=== PATIENT | female | born 1965 | race Caucasian/White ===

== ENCOUNTER 2017-01-12 20:02 | Inpatient (IN) | payer OTHER ==
[2017-01-11] VITALS: BP 105/59; PULSE 90; RESP 20; TEMP 98.5; O2SAT 99
[~2017-01-12] VITALS: Ht 167.6 cm; Wt 59.4 kg
[2017-01-12] VITALS (8 sets, daily range): BP systolic 115–156; BP diastolic 59–92; PULSE 96–120; RESP 10–16; TEMP 94.7; O2SAT 87–100
[2017-01-12] MEDS ORDERED: PROPOFOL 1000 MG/100 ML INJ 100 ML ONE (20:25)
[2017-01-12] MEDS ORDERED: ETOMIDATE 20 MG/10 ML VIAL IV PUSH ONE (20:45)
[2017-01-12] MEDS ORDERED: PROPOFOL 1000 MG/100 ML INJ 100 ML IV PRN (20:45)
[2017-01-12] MEDS ORDERED: SODIUM CHLOR 0.9% 1000 ML INJ 1,000 ML IV ONE ×2 (20:45)
[2017-01-12] MEDS ORDERED: SUCCINYLCHOLINE CHLORIDE 100 MG/5 ML SYRINGE IV PUSH ONE (20:45)
[2017-01-12 20:58] LABS: AUTOMATED NEUTROPHIL # 2.9 TH/MM3 (1.8-7.7); BASOPHIL # 0.1 TH/MM3 (0-0.2); BASOPHIL % 1.4 % (0.0-2.0); EOSINOPHIL # 0.1 TH/MM3 (0-0.4); EOSINOPHIL % 1.4 % (0.0-4.0); HEMATOCRIT 36.1 % (35.0-46.0); HEMO FLAGS DIFF FINAL; LYMPH % 43.5 % (9.0-44.0); LYMPHOCYTE # 2.7 TH/MM3 (1.0-4.8); MEAN CORPUSCULAR HEMOGLOBIN 33.2 PG (27.0-34.0); MEAN CORPUSCULAR HGB CONC 33.9 % (32.0-36.0); MONO % 7.3 % (0.0-8.0); NEUT % 46.4 % (16.0-70.0); PLATELET COUNT 336 TH/MM3 (150-450); RED BLOOD COUNT 3.69 MIL/MM3 (4.00-5.30); WHITE BLOOD COUNT 6.2 TH/MM3 (4.0-11.0)
--- NOTE | 2017-01-12 21:09 | PD ---
HPI . Altered mental status Chief Complaint: OD/ Ingestion Time Seen by Provider: 20:28 Travel History International Travel<30 days: No Contact w/Intl Traveler<30days: No Traveled to known affect area: No History of Present Illness HPI This patient presents to us via [facility] for altered mental status. She was found unresponsive by the swimming pool. There is no concern for drowning. Apparently, she and her friends were having a libertarian by the pool. She passed out. EMS was called. The bystanders showed the medics numerous pills that the patient probably ingested. She has also been drinking. [facility] treated her with 2 doses of Narcan with some improvement in her mental status. I believe that they said that her GCS went from 3-11 with Narcan. No further history is obtainable at this time. This patient has never been seen here before. [facility] Social History Tobacco Use: Yes Allergies-Medications (Allergen,Severity, Reaction): Coded Allergies: No Known Allergies (Unverified , 01/12/17) Reported Meds & Prescriptions Reported Meds & Active Scripts Active Active Prescriptions or Reported Medications Unobtainable Review of Systems ROS Limitations: Intubated, Unresponsive Physical Exam Narrative GENERAL: Thin, disheveled-appearing woman who is unresponsive. She did not respond to attempts at insertion of a nasal airway and she had a negative gag reflex. SKIN: warm/dry. She has some scattered bruises in various stages of healing. HEAD: Normocephalic. Atraumatic. EYES: Pupils equal and round. No scleral icterus. No injection or drainage. ENT: Nose bleed developed following insertion of the nasal airway. Very poor dentition. NECK: Trachea midline. Full range of motion. CARDIOVASCULAR: Sinus tachycardia. RESPIRATORY: Decreased respiratory effort. GASTROINTESTINAL: Abdomen soft. Nontender. Bowel sounds present. Nondistended. MUSCULOSKELETAL: No obvious deformities. NEUROLOGICAL: Obtunded. Does not respond to painful stimuli. She does have spontaneous movement of all 4 extremities. PSYCHIATRIC: Unable to assess. Data Data Last Documented VS Vital Signs Date Time Temp Pulse Resp B/P (MAP) Pulse Ox O2 Delivery O2 Flow Rate FiO2 01/12/17 22:38 100 16 156/92 (113) 100 01/12/17 21:30 94.7 01/12/17 20:53 35.00 50 01/12/17 20:15 Nasal Cannula Orders Orders Propofol 1000 Mg/100 Ml Inj (Diprivan 10 (01/12/17 20:25) Electrocardiogram (01/12/17 20:28) Complete Blood Count With Diff (01/12/17 20:28) Comprehensive Metabolic Panel (01/12/17 20:28) Prothrombin Time / Inr (Pt) (01/12/17 20:28) Act Partial Throm Time (Ptt) (01/12/17 20:28) Urinalysis - C+S If Indicated (01/12/17 20:28) Chest, Single Ap (01/12/17 20:28) Ct Brain W/O Iv Contrast(Rout) (01/12/17 20:28) Arterial Blood Gas (Abg) (01/12/17 20:28) Iv Access Insert/Monitor (01/12/17 20:28) Ecg Monitoring (01/12/17 20:28) Oximetry (01/12/17 20:28) Pascual-Gastric Tube Insert/Mon (01/12/17 20:28) Oxygen Administration (01/12/17 20:28) Urinary Catheter Insert/Apply (01/12/17 20:28) Drug Screen, Random Urine (01/12/17 20:28) Alcohol (Ethanol) (01/12/17 20:28) Salicylates (Aspirin) (01/12/17 20:28) Tylenol (Acetaminophen) (01/12/17 20:28) Lactic Acid Sepsis Protocol (01/12/17 20:28) Ed Urine Pregnancytest Poc (01/12/17 20:28) ^ Infusion (01/12/17 20:28) Neurological Rass Scale Q30MX2,Q2HX4,Q4H (01/12/17 20:28) Etomidate Inj (Amidate Inj) (01/12/17 20:45) Succinylcholine Inj (Quelicin Inj) (01/12/17 20:45) Propofol 1000 Mg/100 Ml Inj (Diprivan 10 (01/12/17 20:45) ^ Infusion (01/12/17 20:35) Neurological Rass Scale Q30MX2,Q2HX4,Q4H (01/12/17 20:35) Sodium Chlor 0.9% 1000 Ml Inj (Ns 1000 M (01/12/17 20:45) Sodium Chlor 0.9% 1000 Ml Inj (Ns 1000 M (01/12/17 20:45) Labs Laboratory Tests Test 01/12/17 20:30 01/12/17 21:18 White Blood Count 6.2 TH/MM3 Red Blood Count 3.69 MIL/MM3 Hemoglobin 12.2 GM/DL Hematocrit 36.1 % Mean Corpuscular Volume 98.0 FL Mean Corpuscular Hemoglobin 33.2 PG Mean Corpuscular Hemoglobin Concent 33.9 % Red Cell Distribution Width 13.0 % Platelet Count 336 TH/MM3 Mean Platelet Volume 7.7 FL Neutrophils (%) (Auto) 46.4 % Lymphocytes (%) (Auto) 43.5 % Monocytes (%) (Auto) 7.3 % Eosinophils (%) (Auto) 1.4 % Basophils (%) (Auto) 1.4 % Neutrophils # (Auto) 2.9 TH/MM3 Lymphocytes # (Auto) 2.7 TH/MM3 Monocytes # (Auto) 0.4 TH/MM3 Eosinophils # (Auto) 0.1 TH/MM3 Basophils # (Auto) 0.1 TH/MM3 CBC Comment DIFF FINAL Differential Comment Prothrombin Time 11.2 SEC Prothromb Time International Ratio 1.0 RATIO Activated Partial Thromboplast Time 27.3 SEC Urine Color LIGHT-YELLOW Urine Turbidity CLEAR Urine pH 5.5 Urine Specific [place] 1.010 Urine Protein NEG mg/dL Urine Glucose (UA) NEG mg/dL Urine Ketones NEG mg/dL Urine Occult Blood NEG Urine Nitrite POS Urine Bilirubin NEG Urine Urobilinogen LESS THAN 2.0 MG/DL Urine Leukocyte Esterase TRACE Urine RBC LESS THAN 1 /hpf Urine WBC 3 /hpf Urine Squamous Epithelial Cells <1 /hpf Urine Bacteria OCC /hpf Urine Mucus FEW /lpf Microscopic Urinalysis Comment CULT NOT INDICATED Blood Urea Nitrogen 10 MG/DL Creatinine 0.74 MG/DL Random Glucose 118 MG/DL Total Protein 6.8 GM/DL Albumin 3.5 GM/DL Calcium Level 7.9 MG/DL Alkaline Phosphatase 100 U/L Aspartate Amino Transf (AST/SGOT) 28 U/L Alanine Aminotransferase (ALT/SGPT) 22 U/L Total Bilirubin 0.5 MG/DL Sodium Level 139 MEQ/L Potassium Level 3.5 MEQ/L Chloride Level 106 MEQ/L Carbon Dioxide Level 23.3 MEQ/L Anion Gap 10 MEQ/L Estimat Glomerular Filtration Rate 82 ML/MIN Lactic Acid Level 3.4 mmol/L Salicylates Level 6.1 MG/DL Urine Opiates Screen NEG Acetaminophen Level LESS THAN 2.0 MCG/ML Urine Barbiturates Screen NEG Urine Amphetamines Screen NEG Urine Benzodiazepines Screen POS Urine Cocaine Screen NEG Urine Cannabinoids Screen POS Ethyl Alcohol Level 268 MG/DL Blood Gas Puncture Site RT RADIAL Blood Gas Patient Temperature 98.6 Blood Gas HCO3 19 mmol/L Blood Gas Base Excess -5.3 mmol/L Blood Gas Oxygen Saturation 91 % Arterial Blood pH 7.34 Arterial Blood Partial Pressure CO2 37 mmHg Arterial Blood Partial Pressure O2 100 mmHG Arterial Blood Oxygen Content 13.6 Vol % Arterial Blood Carboxyhemoglobin 5.3 % Arterial Blood Methemoglobin 0.8 % Blood Gas Hemoglobin 10.5 G/DL Oxygen Delivery Device VENTILATOR Blood Gas Ventilator Setting AC/16 /500/PEEP5 Blood Gas Inspired Oxygen 50 % [facility] Medical Decision Making Medical Screen Exam Complete: Yes Emergency Medical Condition: Yes Medical Record Reviewed: Yes (no old records) Interpretation(s) EKG shows a sinus tachycardia at 105. No acute ischemic changes. Differential Diagnosis Differential diagnosis of altered mental status includes but is not limited to infection, electrolyte abnormality, neurological event, intoxication Narrative Course Patient presented to us via [facility] with altered mental status. She had been given 2 doses of IV Narcan for a total of 2 mg prior to presentation. EMS reported an improvement of her GCS with the Narcan but she still only had a GCS of 11. She had minimal response to painful stimuli and a negative gag reflex. Therefore, the decision was made to intubate her. CT of her head, drug screen, alcohol level, routine blood work are all pending. She now has a brother and a friend who are here. They report that she does drink alcohol but did not seem to be drinking excessively today. They report that she uses marijuana but no other illicit drugs. The friend states that the patient has recently been involved in a bad relationship. She states that the patient saw the estranged boyfriend sometime earlier today. The friend reports that the patient has been acting very weak all day. The friend presumes that its secondary to poor oral intake in the recent past. The friend states that she was sitting by the pool talking with the estranged boyfriend and she started nodding off and then eventually passed out. At that point, EMS was called and she was brought to hospital. CBC & BMP Diagram 01/12/17 20:30 Total Protein 6.8, Albumin 3.5, Calcium Level 7.9 L, Alkaline Phosphatase 100, Aspartate Amino Transf (AST/SGOT) 28, Alanine Aminotransferase (ALT/SGPT) 22, Total Bilirubin 0.5 ABG Test 01/12/17 21:18 Arterial Blood Carboxyhemoglobin 5.3 % *H Arterial Blood Methemoglobin 0.8 % Arterial Blood Oxygen Content 13.6 Vol % Arterial Blood Partial Pressure CO2 37 mmHg L Arterial Blood Partial Pressure O2 100 mmHG Arterial Blood pH 7.34 L Blood Gas Base Excess -5.3 mmol/L L Blood Gas HCO3 19 mmol/L L Blood Gas Hemoglobin 10.5 G/DL L Blood Gas Inspired Oxygen 50 % Blood Gas Oxygen Saturation 91 % Blood Gas Ventilator Setting AC/16 /500/PEEP5 Oxygen Delivery Device VENTILATOR Alcohol level was 268. Tox screen is positive for benzodiazepines and cannabinoids. CT of the head is negative. Chest x-ray is negative for infiltrate. ET tube is in good position. Vital Signs Date Time Temp Pulse Resp B/P (MAP) Pulse Ox O2 Delivery O2 Flow Rate FiO2 01/12/17 22:38 100 16 156/92 (113) 100 01/12/17 21:30 94.7 102 16 136/82 (100) 100 01/12/17 20:53 102 16 115/59 (77) 100 35.00 50 01/12/17 20:20 100 50 01/12/17 20:17 50 01/12/17 20:15 10 87 Nasal Cannula 15.00 01/12/17 20:05 120 10 137/71 (93) Vital signs have improved with fluids. Critical Care Narrative Aggregate critical care time was 60 minutes. Time to perform other separately billable procedures was not included in the critical care time. My time did not include minutes spent treating any other patients simultaneously or on activities that did not directly contribute to the patient's treatment. The services I provided to this patient were to treat and/or prevent clinically significant deterioration due to altered mental status I provided critical care services requiring my management, as noted below: Chart data review, documentation time, medication orders and management, vital sign assessments/reviewing monitor data, ordering and reviewing lab tests, ordering and interpreting/reviewing x-rays and diagnostic studies, care of the patient and discussion of the patient with the admitting physicians Procedures Procedure Narrative INTUBATION: The patient was put in optimal position for the procedure. Rapid sequence intubation was initiated by me using 20 milligrams of etomidate IV and 100 milligrams of succinylcholine IV. The patient was intubated with a 7.0 cuffed endotracheal tube. Tube placement was confirmed by visualization of the tube and balloon passing through the cords, capnometry and subsequent chest x-ray. Breath sounds were equal and well aerated bilaterally postintubation. No breath sounds over stomach. The intubation was complicated by oral pharyngeal bleeding. 3 attempts were necessary for successful intubation. Following intubation, the laryngoscope was used to assist in the placement of an OG tube. The NG tube is draining what appears to be old blood. Physician Communication Physician Communication Dr. Pritchett will see the patient. Diagnosis Primary Impression: Altered mental status Qualified Codes: R40.2431 - Man coma scale score 3-8, in the field [emt or ambulance] Additional Impressions: Lactic acidosis Hypothermia Qualified Codes: T68.XXXA - Hypothermia, initial encounter Admitting Information Admitting Physician Requests: Admit Scripts Unable to Obtain Active Prescriptions or Reported Meds Condition: Dahlia Kruse MD Jan 12, 2017 21:09
[2017-01-12 21:17] LABS: ANION GAP 10 MEQ/L (5-15); AST (GOT) 28 U/L (15-37); BICARBONATE 23.3 MEQ/L (21.0-32.0); BLOOD UREA NITROGEN 10 MG/DL (7-18); CHLORIDE 106 MEQ/L (98-107); GLOMERULAR FILTRATION RATE 82 ML/MIN (>89); POTASSIUM 3.5 MEQ/L (3.5-5.1); SODIUM (NA) 139 MEQ/L (136-145)
[2017-01-12 21:18] LABS: ALT (GPT) 22 U/L (10-53)
[2017-01-12 21:23] LABS: ACETAMINOPHEN LESS THAN 2.0 MCG/ML (10.0-30.0); ALKALINE PHOSPHATASE 100 U/L (45-117); TOTAL BILIRUBIN ADULT 0.5 MG/DL (0.2-1.0)
[2017-01-12 21:31] LABS: BLOOD GAS BASE EXCESS -5.3 mmol/L (-2-2); BLOOD GAS CARBOXYHEMOGLOBIN 5.3 % (0-4); BLOOD GAS HCO3 19 mmol/L (22-26); BLOOD GAS METHEMOGLOBIN 0.8 % (0-2); BLOOD GAS O2 HGB SATURATION 91 % (90-100); BLOOD GAS OXYGEN CONTENT 13.6 Vol % (12.0-20.0); BLOOD GAS PCO2 37 mmHg (38-42); BLOOD GAS PO2 100 mmHG (61-120); BLOOD GAS TOTAL HGB 10.5 G/DL (12.0-16.0); TEMP CORR TO 98.6
[2017-01-12 21:31] LABS: ALCOHOL 268 MG/DL (0-5)
[2017-01-12 21:32] LABS: CRITICAL VALUE YES; DRAW SITE RT RADIAL; FIO2 50 %; NUMBER OF ARTERIAL PUNCTURES 1; OXYGEN DEVICE VENTILATOR; STAT YES; ULNAR PULSE PRESENT; VENT SETTINGS AC/16 /500/PEEP5
--- NOTE | 2017-01-12 21:32 | RADRPT ---
EXAM DATE/TIME: 01/12/2017 20:38 [facility] COMPARISON: No previous studies available for comparison. INDICATIONS : Post intubation. MEDICAL HISTORY : None. SURGICAL HISTORY : None. ENCOUNTER: Initial ACUITY: 1 day PAIN SCORE: 0/10 LOCATION: Bilateral chest FINDINGS: The patient is intubated with the tip of the ET tube 4 cm from the danna. There is an NG tube in heena ce with the tip of the distal esophagus at least 8.5 cm above the EG junction. The heart size is norm al. The lungs are grossly clear. No effusion is seen. CONCLUSION: 1. ET tube in good position. 2. NG tube in the distal esophagus. Rehan Daillo MD on January 12, 2017 at 21:29 Board Certified Radiologist. This report was verified electronically.
[2017-01-12 21:38] LABS: APTT (PATIENT) 27.3 SEC (24.3-30.1); PROTHROMBIN TIME - PATIENT 11.2 SEC (9.8-11.6)
[2017-01-12 22:52] LABS: LACTIC ACID GHOST NOT REPORTABLE
--- NOTE | 2017-01-12 23:09 | RADRPT ---
EXAM DATE/TIME: 01/12/2017 22:15 [facility] COMPARISON: No previous studies available for comparison. INDICATIONS : Altered mental status. Found un-responsive, possible overdose. RADIATION DOSE: 56.35 CTDIvol (mGy) MEDICAL HISTORY : Non-responsive. SURGICAL HISTORY : Non-responsive. ENCOUNTER: Initial ACUITY: 1 day PAIN SCALE: Non-responsive LOCATION: cranial TECHNIQUE: Multiple contiguous axial images were obtained of the head. Using automated exposure control and adj ustment of the mA and/or kV according to patient size, radiation dose was kept as low as reasonably a chievable to obtain optimal diagnostic quality images. DICOM format image data is available electro nically for review and comparison. FINDINGS: CEREBRUM: The ventricles are normal for age. No evidence of midline shift, mass lesion, hemorrhage or acute in farction. No extra-axial fluid collections are seen. POSTERIOR FOSSA: The cerebellum and brainstem are intact. The 4th ventricle is midline. The cerebellopontine angle i s unremarkable. EXTRACRANIAL: The visualized portion of the orbits is intact. Fluid is seen in the sphenoid, maxillary and scattere d ethmoid sinuses. The patient is intubated. There is right periorbital soft tissue swelling. SKULL: The calvaria is intact. No evidence of skull fracture. CONCLUSION: 1. No intracranial abnormality seen. 2. Fluid in the sinuses. Rehan Diallo MD on January 12, 2017 at 23:07 Board Certified Radiologist. This report was verified electronically.
[2017-01-12 23:20] LABS: BACTERIA, URINE OCC /hpf; BLOOD, URINE NEG (NEG); COMMENT (UR) CULT NOT INDICATED; CULTURE IF INDICATED CULT NOT INDICATED; GLUCOSE,URINE NEG (NEG); KETONE, URINE NEG (NEG); MUCUS URINE FEW /lpf (OCC); NITRITE,URINE POS (NEG); PH, URINE 5.5 (5.0-8.5); SQUAMOUS EPITHELIAL CELL URINE <1 /hpf (0-5); URINE COLOR LIGHT-YELLOW (YELLW/STRAW)
--- NOTE | 2017-01-12 23:47 | HHI.HP ---
[facility] Service Critical Care Medicine Primary Care Physician [facility] Admission Diagnosis AMS, lactic acidosis, hypothermia, alcohol intox Diagnosis: Travel History International Travel<30 Days: No Contact w/Intl Traveler <30 Da: No Traveled to Known Affected Are: No History of Present Illness 51-year-old female presents to us via [facility] for altered mental status. She was found unresponsive by the swimming pool. There is no concern for drowning. She and her friends were having a green party by the pool when she passed out. EMS was called. The bystanders showed the medics numerous pills that the patient probably ingested. She has also been drinking and smoking marijuana. [facility] treated her with 2 doses of Narcan with some improvement in her mental status. In the emergency department she was unresponsive with no gag reflex and was intubated for an airway protection by ED attending. Review of Systems ROS Unobtainable patient is comatose and intubated Past Family Social History Allergies: Coded Allergies: No Known Allergies (Unverified , 01/12/17) Past Medical History Unobtainable Past Surgical History Unobtainable Reported Medications Unobtainable Active Ordered Medications Current Medications Medications (Trade) Dose Ordered Sig/William Route PRN Reason Start Time Stop Time Status Last Admin Dose Admin Propofol 100 ml @ 1.77 mls/hr TITRATE PRN IV SEDATION 01/12/17 20:45 01/12/17 21:11 Sodium Chloride 1,000 ml @ 124 mls/hr Q8H4M IV 01/13/17 00:18 UNV Sodium Chloride (NS Flush) 2 ml UNSCH PRN IV FLUSH FLUSH AFTER USING IV ACCESS 01/13/17 00:30 UNV Sodium Chloride (NS Flush) 2 ml BID IV FLUSH 01/13/17 09:00 UNV Acetaminophen (Tylenol) 650 mg Q6H PRN PO PAIN 1-10 AND/OR FEVER >101F 01/13/17 00:30 UNV Famotidine (Pepcid Inj) 20 mg Q12HR IV PUSH 01/13/17 09:00 UNV Artificial Tears (Tears Naturale Opth Soln) 1 drop TID EACH EYE 01/13/17 09:00 UNV Ondansetron HCl (Zofran Inj) 4 mg Q6H PRN IV PUSH NAUSEA OR VOMITING 01/13/17 00:30 UNV Albuterol/ Ipratropium (Duoneb Neb) 1 ampule Q2HR NEB PRN INH WHEEZING 01/13/17 00:30 UNV Enoxaparin Sodium (Lovenox Inj) 30 mg Q24H SQ 01/13/17 00:30 UNV Miscellaneous Information 1 Q361D XX 01/13/17 00:30 UNV Chlorhexidine Gluconate (Chlorhexidine 2% Cloth) 3 pack Taper DAILY@04 TOP 01/13/17 04:00 01/09/18 03:59 UNV Chlorhexidine Gluconate (Chlorhexidine 2% Cloth) 3 pack UNSCH PRN TOP HYGIENIC CARE 01/13/17 00:30 UNV Senna/Docusate Sodium (Katie-Colace) 1 tab BID PO 01/13/17 09:00 UNV Magnesium Hydroxide (Milk Of Magnesia Liq) 30 ml Q12H PRN PO MILD - MODERATE CONSTIPATION 01/13/17 00:30 UNV Sennosides (Senokot) 17.2 mg Q12H PRN PO MODERATE - SEVERE CONSTIPATION 01/13/17 00:30 UNV Bisacodyl (Dulcolax Supp) 10 mg DAILY PRN RECTAL SEVERE CONSITIPATION 01/13/17 00:30 UNV Lactulose (Lactulose Liq) 30 ml DAILY PRN PO SEVERE CONSITIPATION 01/13/17 00:30 UNV Propofol 100 ml @ 1.77 mls/hr TITRATE PRN IV SEDATION 01/13/17 00:30 UNV Family History Unobtainable Social History Unobtainable Physical Exam Vital Signs Vital Signs Date Time Temp Pulse Resp B/P (MAP) Pulse Ox O2 Delivery O2 Flow Rate FiO2 01/12/17 23:45 96 16 153/89 (110) 100 01/12/17 22:38 100 16 156/92 (113) 100 01/12/17 21:30 94.7 102 16 136/82 (100) 100 01/12/17 20:53 102 16 115/59 (77) 100 35.00 50 01/12/17 20:20 100 50 01/12/17 20:17 50 01/12/17 20:15 10 87 Nasal Cannula 15.00 01/12/17 20:05 120 10 137/71 (93) Physical Exam GENERAL: Sedated and intubated elderly woman SKIN: Warm and dry. HEAD: Normocephalic. EYES: No scleral icterus. No injection or drainage. NECK: Supple, trachea midline. No JVD or lymphadenopathy. CARDIOVASCULAR: Regular rate and rhythm without murmurs, gallops, or rubs. RESPIRATORY: Breath sounds equal bilaterally. No accessory muscle use. GASTROINTESTINAL: Abdomen soft, non-tender, nondistended. MUSCULOSKELETAL: No cyanosis, or edema. BACK: Nontender without obvious deformity. NEURO EXAM: GCS: M 5V t E 3 Mental Status: The patient is sedated and intubated on mechanical ventilation Cranial Nerves: Pupils are round, reactive to light. Reflexes: Biceps, patellar, and Achilles are 2/4 bilaterally. No clonus. Laboratory Laboratory Tests Test 01/12/17 20:30 01/12/17 21:18 White Blood Count 6.2 Red Blood Count 3.69 Hemoglobin 12.2 Hematocrit 36.1 Mean Corpuscular Volume 98.0 Mean Corpuscular Hemoglobin 33.2 Mean Corpuscular Hemoglobin Concent 33.9 Red Cell Distribution Width 13.0 Platelet Count 336 Mean Platelet Volume 7.7 Neutrophils (%) (Auto) 46.4 Lymphocytes (%) (Auto) 43.5 Monocytes (%) (Auto) 7.3 Eosinophils (%) (Auto) 1.4 Basophils (%) (Auto) 1.4 Neutrophils # (Auto) 2.9 Lymphocytes # (Auto) 2.7 Monocytes # (Auto) 0.4 Eosinophils # (Auto) 0.1 Basophils # (Auto) 0.1 CBC Comment DIFF FINAL Differential Comment Prothrombin Time 11.2 Prothromb Time International Ratio 1.0 Activated Partial Thromboplast Time 27.3 Urine Color LIGHT-YELLOW Urine Turbidity CLEAR Urine pH 5.5 Urine Specific [place] 1.010 Urine Protein NEG Urine Glucose (UA) NEG Urine Ketones NEG Urine Occult Blood NEG Urine Nitrite POS Urine Bilirubin NEG Urine Urobilinogen LESS THAN 2.0 Urine Leukocyte Esterase TRACE Urine RBC LESS THAN 1 Urine WBC 3 Urine Squamous Epithelial Cells <1 Urine Bacteria OCC Urine Mucus FEW Microscopic Urinalysis Comment CULT NOT INDICATED Blood Urea Nitrogen 10 Creatinine 0.74 Random Glucose 118 Total Protein 6.8 Albumin 3.5 Calcium Level 7.9 Alkaline Phosphatase 100 Aspartate Amino Transf (AST/SGOT) 28 Alanine Aminotransferase (ALT/SGPT) 22 Total Bilirubin 0.5 Sodium Level 139 Potassium Level 3.5 Chloride Level 106 Carbon Dioxide Level 23.3 Anion Gap 10 Estimat Glomerular Filtration Rate 82 Lactic Acid Level 3.4 Salicylates Level 6.1 Urine Opiates Screen NEG Acetaminophen Level LESS THAN 2.0 Urine Barbiturates Screen NEG Urine Amphetamines Screen NEG Urine Benzodiazepines Screen POS Urine Cocaine Screen NEG Urine Cannabinoids Screen POS Ethyl Alcohol Level 268 Blood Gas Puncture Site RT RADIAL Blood Gas Patient Temperature 98.6 Blood Gas HCO3 19 Blood Gas Base Excess -5.3 Blood Gas Oxygen Saturation 91 Arterial Blood pH 7.34 Arterial Blood Partial Pressure CO2 37 Arterial Blood Partial Pressure O2 100 Arterial Blood Oxygen Content 13.6 Arterial Blood Carboxyhemoglobin 5.3 Arterial Blood Methemoglobin 0.8 Blood Gas Hemoglobin 10.5 Oxygen Delivery Device VENTILATOR Blood Gas Ventilator Setting AC/16 /500/PEEP5 Blood Gas Inspired Oxygen 50 Result Diagram: 01/12/17202901/12/172029 Randy VTE Risk Assessment Caprini VTE Risk Assessment: Mod/High Risk (score >= 2) Caprini Risk Assessment Model Point Value = 1 Point Value = 2 Point Value = 3 Point Value = 5 Age 41-60 Minor surgery BMI > 25 kg/m2 Swollen legs Varicose veins or History of unexplained or recurrent spontaneous Oral contraceptives or hormone replacement Sepsis (< 1 month) Serious lung disease, including pneumonia (< 1 month) Abnormal pulmonary function Acute myocardial infarction Congestive heart failure (< 1 month) History of inflammatory bowel disease Medical patient at bed rest Age 61-74 Arthroscopic surgery Major open surgery (> 45 min) Laparoscopic surgery (> 45 min) Malignancy Confined to bed (> 72 hours) Immobilizing plaster cast Central venous access Age >= 75 History of VTE Family history of VTE Factor V Leiden Prothrombin [id number] Lupus anticoagulant Anticardiolipin antibodies Elevated serum homocysteine Heparin-induced thrombocytopenia Other congenital or acquired thrombophilia Stroke (< 1 month) Elective arthroplasty Hip, pelvis, or leg fracture Acute spinal cord injury (< 1 month) Prophylaxis Regimen Total Risk Factor Score Risk Level Prophylaxis Regimen 0-1 Low Early ambulation 2 Moderate Order ONE of the following: *Sequential Compression Device (SCD) *Heparin 5000 units SQ BID 3-4 Higher Order ONE of the following medications: *Heparin 5000 units SQ TID *Enoxaparin/Lovenox 40 mg SQ daily (WT < 150 kg, CrCl > 30 mL/min) *Enoxaparin/Lovenox 30 mg SQ daily (WT < 150 kg, CrCl > 10-29 mL/min) *Enoxaparin/Lovenox 30 mg SQ BID (WT < 150 kg, CrCl > 30 mL/min) AND/OR *Sequential Compression Device (SCD) 5 or more Highest Order ONE of the following medications: *Heparin 5000 units SQ TID (Preferred with Epidurals) *Enoxaparin/Lovenox 40 mg SQ daily (WT < 150 kg, CrCl > 30 mL/min) *Enoxaparin/Lovenox 30 mg SQ daily (WT < 150 kg, CrCl > 10-29 mL/min) *Enoxaparin/Lovenox 30 mg SQ BID (WT < 150 kg, CrCl > 30 mL/min) AND *Sequential Compression Device (SCD) Assessment and Plan Assessment and Plan Respiratory failure - Intubated for an airway protection - Mechanical ventilation - CXR and ABG daily - SBT a.m. when neurologically improved Altered mental status - Most likely polypharmacy ingestion in combination with alcohol and marijuana - CT head negative - Supportive care - Neuro checks per unit protocol Intoxication - Monitor for withdrawal - Ativan when necessary DVT GI prophylaxis - Teds SCDs - Lovenox - Pepcid Critical Care: The total critical care time was 35 minutes. Time to perform other separately billable procedures was not included in the critical care time. Marin Pritchett MD Jan 12, 2017 11:47 pm
[2017-01-13] VITALS (18 sets, daily range): BP systolic 113–215; BP diastolic 52–100; PULSE 68–105; RESP 16–29; TEMP 97.8–98.8; O2SAT 40–100
[2017-01-13] MEDS ORDERED: SODIUM CHLORIDE 0.9% FLUSH 10 ML FLUSH IV FLUSH PRN (00:30)
[2017-01-13] MEDS ORDERED: PROPOFOL 1000 MG/100 ML INJ 100 ML IV PRN (00:30)
[2017-01-13] MEDS ORDERED: MISCELLANEOUS NURSING INFORMATION XX SCH (00:30)
[2017-01-13] MEDS ORDERED: LACTULOSE SYRUP 20 GM/30 ML CUP PO PRN (00:30)
[2017-01-13] MEDS ORDERED: CHLORHEXIDINE GLUCONATE 2 % 1 PACK (2 CLOTHS) TOP PRN (00:30)
[2017-01-13] MEDS ORDERED: MAGNESIUM HYDROXIDE SUSP 30 ML CUP PO PRN (00:30)
[2017-01-13] MEDS ORDERED: SENNOSIDES 8.6 MG TAB PO PRN (00:30)
[2017-01-13] MEDS ORDERED: BISACODYL 10 MG SUPP RECTAL PRN (00:30)
[2017-01-13] MEDS ORDERED: ONDANSETRON HCL 4 MG/2 ML VIAL IV PUSH PRN (00:30)
[2017-01-13] MEDS ORDERED: RESP: ALBUTEROL 2.5 MG/IPRATROPIUM 0.5 MG NEB (PRN) INH (00:30)
[2017-01-13] MEDS: SODIUM CHLOR 0.9% 1000 ML INJ 1,000 ML IV SCH ×3 (01:34→16:26)
[2017-01-13] MEDS: ENOXAPARIN SODIUM 30 MG/0.3 ML SYRINGE SQ SCH (01:35)
[2017-01-13] MEDS: CHLORHEXIDINE GLUCONATE 2 % 1 PACK (2 CLOTHS) TOP SCH (02:41)
[2017-01-13 05:49] LABS: AUTOMATED NEUTROPHIL # 13.7 TH/MM3 (1.8-7.7); BASOPHIL # 0.1 TH/MM3 (0-0.2); BASOPHIL % 0.5 % (0.0-2.0); EOSINOPHIL # 0.1 TH/MM3 (0-0.4); EOSINOPHIL % 0.6 % (0.0-4.0); HEMATOCRIT 36.3 % (35.0-46.0); HEMO FLAGS DIFF FINAL; LYMPH % 10.8 % (9.0-44.0); LYMPHOCYTE # 1.8 TH/MM3 (1.0-4.8); MEAN CELL VOLUME 97.6 FL (80.0-100.0); MEAN CORPUSCULAR HEMOGLOBIN 32.4 PG (27.0-34.0); MEAN CORPUSCULAR HGB CONC 33.2 % (32.0-36.0); MONO % 3.4 % (0.0-8.0); NEUT % 84.7 % (16.0-70.0); PLATELET COUNT 331 TH/MM3 (150-450); RED BLOOD COUNT 3.71 MIL/MM3 (4.00-5.30); RED CELL DISTRIBUTION WIDTH 13.3 % (11.6-17.2); WHITE BLOOD COUNT 16.2 TH/MM3 (4.0-11.0)
[2017-01-13 05:58] LABS: ALT (GPT) 25 U/L (10-53)
[2017-01-13 06:02] LABS: ALKALINE PHOSPHATASE 99 U/L (45-117); CREATINE KINASE 364 U/L (26-192); TOTAL BILIRUBIN ADULT 0.4 MG/DL (0.2-1.0)
[2017-01-13 06:05] LABS: ANION GAP 14 MEQ/L (5-15); AST (GOT) 29 U/L (15-37); BICARBONATE 20.4 MEQ/L (21.0-32.0); CHLORIDE 108 MEQ/L (98-107); GLOMERULAR FILTRATION RATE 89 ML/MIN (>89); MAGNESIUM 1.5 MG/DL (1.5-2.5); POTASSIUM 3.4 MEQ/L (3.5-5.1); SODIUM (NA) 142 MEQ/L (136-145)
[2017-01-13 06:12] LABS: BLOOD UREA NITROGEN 8 MG/DL (7-18)
[2017-01-13 06:14] LABS: CKMB 4.8 NG/ML (0.5-3.6)
[2017-01-13] MEDS: ARTIFICIAL TEARS OPTH SOLN 15 ML BTL EACH EYE SCH ×3 (09:00→18:00)
[2017-01-13] MEDS: DOCUSATE SODIUM 50 MG/SENNA 8.6 MG TAB PO SCH ×2 (09:00→21:14)
[2017-01-13] MEDS: SODIUM CHLORIDE 0.9% FLUSH 10 ML FLUSH IV FLUSH SCH ×2 (09:25→21:14)
[2017-01-13] MEDS: FAMOTIDINE 20 MG/2 ML VIAL IV PUSH SCH ×2 (09:25→21:13)
[2017-01-13] MEDS ORDERED: TRAZ100T6 PO (09:29)
[2017-01-13] MEDS ORDERED: VENL75TA PO (09:29)
[2017-01-13] MEDS ORDERED: BUSP30TA PO (09:31)
[2017-01-13] MEDS ORDERED: PRAZ5CAP PO (09:36)
--- NOTE | 2017-01-13 09:47 | EKG ---
Date Performed: 01/13/2017 Time Performed: 09:13:43 PTAGE: 51 years EKG: SINUS TACHYCARDIA ABNORMAL RHYTHM ECG PREVIOUS TRACING : 01/13/2017 00.55 DOCTOR: Juan Antonio Davis Interpretating Date/Time 01/13/2017 09:45:23
--- NOTE | 2017-01-13 10:07 | EKG ---
Date Performed: 01/13/2017 Time Performed: 00:55:02 PTAGE: 51 years EKG: Sinus rhythm NORMAL ECG NO PREVIOUS TRACING DOCTOR: Juan Antonio Davis Interpretating Date/Time 01/13/2017 10:04:54
--- NOTE | 2017-01-13 10:12 | EKG ---
Date Performed: 01/12/2017 Time Performed: 21:30:01 PTAGE: 51 years EKG: SINUS TACHYCARDIA ABNORMAL RHYTHM ECG NO PREVIOUS TRACING DOCTOR: Juan Antonio Davis Interpretating Date/Time 01/13/2017 10:11:41
[2017-01-13] MEDS: ACETAMINOPHEN 325 MG TAB PO PRN (13:29)
--- NOTE | 2017-01-13 14:15 | HHI.CCPN ---
Subjective Remarks/Hospital Course 51-year-old female presents to us via EV[facility] for altered mental status. She was found unresponsive by the swimming pool. There is no concern for drowning. She and her friends were having a alliance party by the pool when she passed out. EMS was called. The bystanders showed the medics numerous pills that the patient probably ingested. She has also been drinking and smoking marijuana. EVAC treated her with 2 doses of Narcan with some improvement in her mental status. In the emergency department she was unresponsive with no gag reflex and was intubated for an airway protection by ED attending. Subjective: 01/14: Patient awake alert oriented. Complains of generalized muscle aches, given Tylenol. The patient passed bedside swallow diet advance. Plan for PT evaluation and treatment. Objective Vital Signs Date Time Temp Pulse Resp B/P (MAP) Pulse Ox O2 Delivery O2 Flow Rate FiO2 01/13/17 10:00 105 01/13/17 08:00 98.0 25 142/71 (94) 100 01/13/17 07:00 Nasal Cannula 2.00 35 Intake and Output 01/13/17 01/13/17 01/14/17 08:00 16:00 00:00 Intake Total 381 ml Output Total 2100 ml Balance -1719 ml Result Diagram: 01/13/17 0440 01/13/17 0440 Other Results Laboratory Tests Test 01/12/17 21:18 Blood Gas Puncture Site RT RADIAL Blood Gas Patient Temperature 98.6 Blood Gas HCO3 19 mmol/L (22-26) Blood Gas Base Excess -5.3 mmol/L (-2-2) Blood Gas Oxygen Saturation 91 % (90-100) Arterial Blood pH 7.34 (7.380-7.420) Arterial Blood Partial Pressure CO2 37 mmHg (38-42) Arterial Blood Partial Pressure O2 100 mmHG (61-120) Arterial Blood Oxygen Content 13.6 Vol % (12.0-20.0) Arterial Blood Carboxyhemoglobin 5.3 % (0-4) Arterial Blood Methemoglobin 0.8 % (0-2) Blood Gas Hemoglobin 10.5 G/DL (12.0-16.0) Oxygen Delivery Device VENTILATOR Blood Gas Ventilator Setting AC/16 /500/PEEP5 Blood Gas Inspired Oxygen 50 % Imaging Last Impressions Head CT 01/12/172027 Signed Impressions: Service Date/Time: Thursday, January 12, 2017 22:15 - CONCLUSION: 1. No intracranial abnormality seen. 2. Fluid in the sinuses. Rehan Diallo MD Chest X-Ray 01/12/172027 Signed Impressions: Service Date/Time: Thursday, January 12, 2017 20:38 - CONCLUSION: 1. ET tube in good position. 2. NG tube in the distal esophagus. Rehan Diallo MD Objective Remarks GENERAL: Awake and alert female looking older than stated age in no acute distress SKIN: Warm and dry. HEAD: Normocephalic. EYES: No scleral icterus. No injection or drainage. NECK: Supple, trachea midline. No JVD or lymphadenopathy. CARDIOVASCULAR: Regular rate and rhythm without murmurs, gallops, or rubs. RESPIRATORY: Breath sounds equal bilaterally. No accessory muscle use. GASTROINTESTINAL: Abdomen soft, non-tender, nondistended. MUSCULOSKELETAL: No cyanosis, or edema. Minor abrasions noted bilateral knees and elbows BACK: Nontender without obvious deformity. NEURO EXAM: GCS: M 6V 5 E 4 Mental Status: The patient is sedated and intubated on mechanical ventilation Cranial Nerves: Pupils are round, reactive to light. Reflexes: Biceps, patellar, and Achilles are 2/4 bilaterally. No clonus. A/P Assessment and Plan Respiratory failure-resolved - Intubated for an airway protection on 01/13 - Extubated this a.m., currently on 2 L nasal cannula O2 sat 99% - CXR and ABG as clinically indicated Altered mental status-resolved - 01/13 Most likely polypharmacy ingestion in combination with alcohol and marijuana - CT head negative - Supportive care - Neuro checks per unit protocol Intoxication - Monitor for withdrawal -Seizure precautions - Ativan when necessary DVT GI prophylaxis - Teds SCDs - Lovenox - Pepcid Dispo: Discussed with APPLICATION SUPPORT DEVELOPER at bedside. [facility] Plan transfer to medical surgical floor. Physician Alicia Padilla MD Jan 13, 2017 14:15
[2017-01-13] MEDS: PRAZOSIN HCL 5 MG CAP PO SCH (21:13)
[2017-01-14] VITALS (9 sets, daily range): BP systolic 105–155; BP diastolic 59–73; PULSE 82–100; RESP 18–21; TEMP 97.7–98.2; O2SAT 96–100
[2017-01-14] MEDS: SODIUM CHLOR 0.9% 1000 ML INJ 1,000 ML IV SCH ×2 (00:30→03:08)
[2017-01-14] MEDS: ENOXAPARIN SODIUM 30 MG/0.3 ML SYRINGE SQ SCH (00:42)
[2017-01-14] MEDS: ACETAMINOPHEN 325 MG TAB PO PRN (03:11)
[2017-01-14] MEDS: CHLORHEXIDINE GLUCONATE 2 % 1 PACK (2 CLOTHS) TOP SCH (04:00)
[2017-01-14 06:23] LABS: AUTOMATED NEUTROPHIL # 5.2 TH/MM3 (1.8-7.7); BASOPHIL % 0.7 % (0.0-2.0); EOSINOPHIL # 0.2 TH/MM3 (0-0.4); EOSINOPHIL % 2.7 % (0.0-4.0); HEMATOCRIT 30.7 % (35.0-46.0); HEMO FLAGS DIFF FINAL; LYMPH % 18.1 % (9.0-44.0); LYMPHOCYTE # 1.3 TH/MM3 (1.0-4.8); MEAN CELL VOLUME 96.5 FL (80.0-100.0); MEAN CORPUSCULAR HEMOGLOBIN 33.1 PG (27.0-34.0); MEAN CORPUSCULAR HGB CONC 34.3 % (32.0-36.0); NEUT % 74.5 % (16.0-70.0); PLATELET COUNT 255 TH/MM3 (150-450); RED BLOOD COUNT 3.18 MIL/MM3 (4.00-5.30); RED CELL DISTRIBUTION WIDTH 13.1 % (11.6-17.2)
[2017-01-14 06:49] LABS: BICARBONATE 23.5 MEQ/L (21.0-32.0); MAGNESIUM 1.3 MG/DL (1.5-2.5); TOTAL BILIRUBIN ADULT 1.3 MG/DL (0.2-1.0)
[2017-01-14 07:49] LABS: POTASSIUM 2.8 MEQ/L (3.5-5.1)
[2017-01-14] MEDS: DOCUSATE SODIUM 50 MG/SENNA 8.6 MG TAB PO SCH ×2 (09:00→21:00)
[2017-01-14] MEDS: SODIUM CHLORIDE 0.9% FLUSH 10 ML FLUSH IV FLUSH SCH ×2 (09:00→21:00)
[2017-01-14] MEDS: ARTIFICIAL TEARS OPTH SOLN 15 ML BTL EACH EYE SCH ×3 (09:00→17:34)
[2017-01-14] MEDS: MAGNESIUM SULFATE 1 GM PREMIX 100 ML IV SCH ×2 (10:21→13:58)
[2017-01-14] MEDS: POTASSIUM CHLOR 20 MEQ PREMIX 100 ML IV SCH ×2 (10:21→13:58)
[2017-01-14] MEDS: FAMOTIDINE 20 MG/2 ML VIAL IV PUSH SCH ×2 (10:21→21:26)
--- NOTE | 2017-01-14 13:07 | HHI.PR ---
Subjective Remarks Follow up respiratory failure. Patient reports pain in her ribcage, worse with deep breaths. No dyspnea. Cough is nonproductive. Objective Vitals Vital Signs Date Time Temp Pulse Resp B/P (MAP) Pulse Ox O2 Delivery O2 Flow Rate FiO2 01/14/17 08:00 89 01/14/17 06:00 82 01/14/17 04:00 97.7 84 20 119/60 (79) 99 01/14/17 04:00 84 01/14/17 02:00 94 01/14/17 00:00 90 01/14/17 00:00 98.1 90 21 105/59 (74) 99 01/13/17 22:00 78 01/13/17 20:00 78 01/13/17 20:00 100 Nasal Cannula 2.00 35 01/13/17 20:00 98.8 74 21 113/63 (80) 100 01/13/17 19:55 100 01/13/17 16:00 94 01/13/17 16:00 98.2 83 25 118/72 (87) 100 01/13/17 15:00 95 01/13/17 14:29 22 01/13/17 14:00 94 I/O 01/13/17 01/13/17 01/13/17 01/14/17 01/14/17 01/14/17 07:00 15:00 23:00 07:00 15:00 23:00 Intake Total 381 ml 1816 ml 928 ml Output Total 2100 ml 950 ml 1250 ml Balance -1719 ml 866 ml -322 ml Intake Oral 240 ml 240 ml IV Total 381 ml 1576 ml 688 ml Output Urine Total 1900 ml 950 ml 1250 ml Gastric Drainage Total 200 ml Result Diagram: 01/14/17 0500 01/14/17 0500 Imaging Last Impressions Head CT 01/12/172027 Signed Impressions: Service Date/Time: Thursday, January 12, 2017 22:15 - CONCLUSION: 1. No intracranial abnormality seen. 2. Fluid in the sinuses. Rehan Diallo MD Chest X-Ray 01/12/172027 Signed Impressions: Service Date/Time: Thursday, January 12, 2017 20:38 - CONCLUSION: 1. ET tube in good position. 2. NG tube in the distal esophagus. Rehan Diallo MD Objective Remarks General: No acute distress. Appears uncomfortable. Voice is hoarse. Heart: Regular rate and rhythm. No murmur. Lungs: Clear to auscultation bilaterally. No wheezes, rales, or rhonchi. Breathing is nonlabored. Abdomen: Soft, nontender, nondistended. Extremities: No lower extremity edema. Psych: Alert and oriented. HEENT: Right periorbital bruising, swelling. Urinary Catheter: No Vascular Central Line Catheter: No A/P Problem List: (1) Hypokalemia ICD Code: E87.6 - Hypokalemia (2) Hypomagnesemia ICD Code: E83.42 - Hypomagnesemia (3) Encephalopathy ICD Code: G93.40 - Encephalopathy, unspecified (4) Acute respiratory failure ICD Code: J96.00 - Acute respiratory failure, unspecified whether with hypoxia or hypercapnia (5) Rib pain ICD Code: R07.81 - Pleurodynia (6) Lactic acidosis ICD Code: E87.2 - Acidosis Status: Acute Assessment and Plan 1. Acute respiratory failure: Resolved. Patient was intubated for airway protection. She has since been extubated and is stable on room air. 2. Rib cage pain: Secondary to fall. Pain is significantly worse with deep breaths. The patient states that Tylenol is not helping. Add ibuprofen. 3. Hypokalemia: Supplement potassium IV. Recheck labs in the morning. 4. Hypomagnesemia: Supplement magnesium IV. 5. Encephalopathy: Resolved. Metabolic encephalopathy secondary to polypharmacy/ intoxication. Patient states that she took her psychiatric medications (Effexor , trazodone, Valium, BuSpar) and was drinking alcohol along with it. She has been counseled. 6. GI prophylaxis: Pepcid. 7. DVT prophylaxis: SCDs, RAISSA hose, Lovenox. Discharge Planning Transfer to medical/surgical floor when bed is available. Kai Strickland MD Jan 14, 2017 13:07
[2017-01-14] MEDS ORDERED: MAGNESIUM SULFATE 1 GM PREMIX 100 ML ONE (13:56)
[2017-01-14] MEDS: IBUPROFEN 600 MG TAB PO SCH ×2 (17:33→21:26)
[2017-01-14] MEDS: PRAZOSIN HCL 5 MG CAP PO SCH (21:25)
[2017-01-15] VITALS: BP 147/82; PULSE 98; RESP 20; TEMP 98.1; O2SAT 98
[2017-01-15] MEDS: ENOXAPARIN SODIUM 30 MG/0.3 ML SYRINGE SQ SCH (00:08)
[2017-01-15] MEDS: CHLORHEXIDINE GLUCONATE 2 % 1 PACK (2 CLOTHS) TOP SCH (03:07)
[2017-01-15 04:00] VITALS: PULSE 80; RESP 20; TEMP 97.3; O2SAT 99
[2017-01-15] MEDS: IBUPROFEN 600 MG TAB PO SCH ×2 (06:23→13:15)
[2017-01-15 08:00] VITALS: BP 123/75; PULSE 76; RESP 20; TEMP 97.6; O2SAT 100
[2017-01-15 08:32] LABS: BICARBONATE 23.4 MEQ/L (21.0-32.0); MAGNESIUM 2.2 MG/DL (1.5-2.5); POTASSIUM 3.2 MEQ/L (3.5-5.1)
[2017-01-15] MEDS: FAMOTIDINE 20 MG/2 ML VIAL IV PUSH SCH (09:05)
[2017-01-15] MEDS: SODIUM CHLORIDE 0.9% FLUSH 10 ML FLUSH IV FLUSH SCH (09:06)
[2017-01-15] MEDS: DOCUSATE SODIUM 50 MG/SENNA 8.6 MG TAB PO SCH (09:06)
[2017-01-15] MEDS: ARTIFICIAL TEARS OPTH SOLN 15 ML BTL EACH EYE SCH (09:06)
[2017-01-15 12:00] VITALS: BP 132/77; PULSE 86; RESP 20; TEMP 97.6; O2SAT 98
--- NOTE | 2017-01-15 12:39 | HHI.PR ---
Subjective Remarks Follow-up acute respiratory failure/metabolic encephalopathy 01/15/17-patient seen and examined, alert and oriented 3. Still complaining of rib cage pain and states, she may have fallen prior to admission. Objective Vitals Vital Signs Date Time Temp Pulse Resp B/P (MAP) Pulse Ox O2 Delivery O2 Flow Rate FiO2 01/15/17 08:00 97.6 76 20 123/75 (91) 100 01/15/17 04:00 97.3 80 20 99 01/15/17 00:00 98.1 98 20 147/82 (103) 98 01/14/17 20:00 98.2 87 20 136/73 (94) 100 01/14/17 16:00 98.1 88 18 142/71 (94) 99 01/14/17 13:48 100 21 I/O 01/14/17 01/14/17 01/14/17 01/15/17 01/15/17 01/15/17 07:00 15:00 23:00 07:00 15:00 23:00 Intake Total 928 ml 200 ml 45 ml Output Total 1250 ml 675 ml Balance -322 ml -475 ml 45 ml Intake Oral 240 ml IV Total 688 ml 200 ml 45 ml Output Urine Total 1250 ml 675 ml # Voids 1 1 Result Diagram: 01/14/17 0500 01/15/17 0730 Imaging Last Impressions Head CT 01/12/172027 Signed Impressions: Service Date/Time: Thursday, January 12, 2017 22:15 - CONCLUSION: 1. No intracranial abnormality seen. 2. Fluid in the sinuses. Rehan Diallo MD Chest X-Ray 01/12/172027 Signed Impressions: Service Date/Time: Thursday, January 12, 2017 20:38 - CONCLUSION: 1. ET tube in good position. 2. NG tube in the distal esophagus. Rehan Diallo MD Objective Remarks GENERAL: NAD SKIN: Warm and dry. HEAD: Normocephalic. EYES: No scleral icterus. No injection or drainage. NECK: Supple, trachea midline. No JVD or lymphadenopathy. CARDIOVASCULAR: Regular rate and rhythm without murmurs, gallops, or rubs. RESPIRATORY: Breath sounds equal bilaterally. No accessory muscle use. GASTROINTESTINAL: Abdomen soft, non-tender, nondistended. MUSCULOSKELETAL: No cyanosis, or edema. BACK: Nontender without obvious deformity. No CVA tenderness. Procedures none A/P Problem List: (1) Hypokalemia ICD Code: E87.6 - Hypokalemia (2) Hypomagnesemia ICD Code: E83.42 - Hypomagnesemia (3) Encephalopathy ICD Code: G93.40 - Encephalopathy, unspecified (4) Acute respiratory failure ICD Code: J96.00 - Acute respiratory failure, unspecified whether with hypoxia or hypercapnia (5) Rib pain ICD Code: R07.81 - Pleurodynia (6) Lactic acidosis ICD Code: E87.2 - Acidosis Status: Acute Assessment and Plan 51 yrs female with 1. Acute respiratory failure: Resolved. s/p extubated .currently on room air 2. Rib cage pain: Secondary to fall. treatment with Tylenol and ibuprofen. 3. Hypokalemia: Improving with K supplement 4. Hypomagnesemia: Resolved 5. Metabolic Encephalopathy: Resolved. secondary to polypharmacy/ intoxication. 6. GI prophylaxis: Pepcid. 7. DVT prophylaxis: RAISSA Conde Lovenox. Schuyler Akins MD Jan 15, 2017 12:39
[2017-01-15] MEDS ORDERED: ACET1TAB86 PO (12:41)
[2017-01-15] MEDS ORDERED: IBUP-232 PO (12:41)
--- NOTE | 2017-01-15 12:44 | HHI.DS ---
Discharge Summary Admission Date Jan 12, 2017 at 23:38 Discharge Date: Jan 15, 2017 Admitting Diagnosis AMS, lactic acidosis, hypothermia, alcohol intox (1) Hypokalemia ICD Code: E87.6 - Hypokalemia (2) Hypomagnesemia ICD Code: E83.42 - Hypomagnesemia (3) Encephalopathy ICD Code: G93.40 - Encephalopathy, unspecified (4) Acute respiratory failure ICD Code: J96.00 - Acute respiratory failure, unspecified whether with hypoxia or hypercapnia (5) Rib pain ICD Code: R07.81 - Pleurodynia (6) Lactic acidosis ICD Code: E87.2 - Acidosis Status: Acute Procedures none Brief History - From Admission 51-year-old female presents to us via EVAC for altered mental status. She was found unresponsive by the swimming pool. There is no concern for drowning. She and her friends were having a libertarian by the pool when she passed out. EMS was called. The bystanders showed the medics numerous pills that the patient probably ingested. She has also been drinking and smoking marijuana. EVAC treated her with 2 doses of Narcan with some improvement in her mental status. In the emergency department she was unresponsive with no gag reflex and was intubated for an airway protection by ED attending. CBC/BMP: 01/14/17 0500 01/15/17 0730 Significant Findings Laboratory Tests Test 01/12/17 20:30 01/12/17 21:18 01/12/17 23:30 01/13/17 02:27 Red Blood Count 3.69 MIL/MM3 (4.00-5.30) Urine Nitrite POS (NEG) Urine Leukocyte Esterase TRACE (NEG) Urine Bacteria OCC /hpf (NONE) Urine Mucus FEW /lpf (OCC) Random Glucose 118 MG/DL (74-106) Calcium Level 7.9 MG/DL (8.5-10.1) Estimat Glomerular Filtration Rate 82 ML/MIN (>89) Lactic Acid Level 3.4 mmol/L (0.4-2.0) Troponin I LESS THAN 0.02 NG/ML Acetaminophen Level LESS THAN 2.0 MCG/ML Urine Benzodiazepines Screen POS (NEG) Urine Cannabinoids Screen POS (NEG) Ethyl Alcohol Level 268 MG/DL (0-5) Blood Gas HCO3 19 mmol/L (22-26) Blood Gas Base Excess -5.3 mmol/L (-2-2) Arterial Blood pH 7.34 (7.380-7.420) Arterial Blood Partial Pressure CO2 37 mmHg (38-42) Arterial Blood Carboxyhemoglobin 5.3 % (0-4) Blood Gas Hemoglobin 10.5 G/DL (12.0-16.0) Test 01/13/17 04:40 01/14/17 05:00 01/15/17 07:30 White Blood Count 16.2 TH/MM3 (4.0-11.0) Red Blood Count 3.71 MIL/MM3 (4.00-5.30) 3.18 MIL/MM3 (4.00-5.30) Neutrophils (%) (Auto) 84.7 % (16.0-70.0) 74.5 % (16.0-70.0) Neutrophils # (Auto) 13.7 TH/MM3 (1.8-7.7) Albumin 3.3 GM/DL (3.4-5.0) 2.9 GM/DL (3.4-5.0) Calcium Level 7.6 MG/DL (8.5-10.1) 7.4 MG/DL (8.5-10.1) Phosphorus Level 1.9 MG/DL (2.5-4.9) Potassium Level 3.4 MEQ/L (3.5-5.1) 2.8 MEQ/L (3.5-5.1) 3.2 MEQ/L (3.5-5.1) Chloride Level 108 MEQ/L (98-107) 110 MEQ/L (98-107) Carbon Dioxide Level 20.4 MEQ/L (21.0-32.0) Total Creatine Kinase 364 U/L (26-192) Creatine Kinase MB 4.8 NG/ML (0.5-3.6) Troponin I LESS THAN 0.02 NG/ML Hemoglobin 10.5 GM/DL (11.6-15.3) Hematocrit 30.7 % (35.0-46.0) Blood Urea Nitrogen 4 MG/DL (7-18) 4 MG/DL (7-18) Total Protein 6.0 GM/DL (6.4-8.2) Magnesium Level 1.3 MG/DL (1.5-2.5) Total Bilirubin 1.3 MG/DL (0.2-1.0) Protein Corrected Calcium 8.0 MG/DL (8.5-10.1) Imaging Last Impressions Head CT 01/12/172027 Signed Impressions: Service Date/Time: Thursday, January 12, 2017 22:15 - CONCLUSION: 1. No intracranial abnormality seen. 2. Fluid in the sinuses. Rehan Diallo MD Chest X-Ray 01/12/172027 Signed Impressions: Service Date/Time: Thursday, January 12, 2017 20:38 - CONCLUSION: 1. ET tube in good position. 2. NG tube in the distal esophagus. Rehan Diallo MD PE at Discharge GENERAL: NAD SKIN: Warm and dry. HEAD: Normocephalic. EYES: No scleral icterus. No injection or drainage. NECK: Supple, trachea midline. No JVD or lymphadenopathy. CARDIOVASCULAR: Regular rate and rhythm without murmurs, gallops, or rubs. RESPIRATORY: Breath sounds equal bilaterally. No accessory muscle use. GASTROINTESTINAL: Abdomen soft, non-tender, nondistended. MUSCULOSKELETAL: No cyanosis, or edema. BACK: Nontender without obvious deformity. No CVA tenderness. Hospital Course Patient admitted secondary to acute respiratory failure for which she was initially intubated under the care of critical care medicine, and subsequently extubated. Oxygen saturation was maintained above 92%. She was continued on her treatment for hypertension. All electrolyte abnormalities were corrected accordingly. PT and GI prophylaxis were provided. Patient was counseled on polypharmacy. Pt Condition on Discharge: Stable Discharge Disposition: Discharge Home Discharge Time: <= 30 minutes Discharge Instructions DIET: Follow Instructions for: Heart Healthy Diet Activities you can perform: Regular-No Restrictions Follow up Referrals: PCP Follow-up - 1 Week New Medications: Acetaminophen (Eq Acetaminophen) 325 Mg Tab 650 MG PO Q6H PRN for PAIN 1-10 AND/OR FEVER >101F, #20 TAB Ibuprofen (Ibuprofen) 600 Mg Tab 600 MG PO Q8HR for Pain Management, #20 TAB Continued Medications: Buspirone (Buspirone) 30 Mg Tab 25 MG PO BID for Anxiety, TAB 0 Refills Prazosin (Prazosin) 5 Mg Cap 15 MG PO HS for Blood Pressure Management, #60 CAP 0 Refills Trazodone (Trazodone) 100 Mg Tablet 100 MG PO HS for Control Depression, #30 TAB 0 Refills Venlafaxine (Effexor) 75 Mg Tab 150 MG PO DAILY@1999, #30 TAB 0 Refills Schuyler Akins MD Jan 15, 2017 12:44
[2017-01-15] MEDS ORDERED: POTASSIUM CHLORIDE 10 MEQ CONTROLLED RELEASE TAB PO ONE (13:00)
== END 2017-01-15 13:41 | disposition home or self-care (01) | DRG 917 ==
LOC: NEPC 20:02 → NEDA 23:38 → N03A 01-13 02:08 → N05B 01-14 16:11
PROVIDERS: ADMIT Hospitalist; ATTEND Hospitalist
PROC: 0BH17EZ Insertion of Endotracheal Airway into Trachea, Via Natural or Artificial Opening (ICD-10-PCS; principal; 2017-01-12)
PROC: 5A1935Z Respiratory Ventilation, Less than 24 Consecutive Hours (ICD-10-PCS; 2017-01-12)
DX: T51.0X1A Toxic effect of ethanol, accidental (unintentional), initial encounter (principal); J96.00 Acute respiratory failure, unspecified whether with hypoxia or hypercapnia; G92 Toxic encephalopathy; E87.2 Acidosis; F10.120 Alcohol abuse with intoxication, uncomplicated; R40.2431 Glasgow coma scale score 3-8, in the field [EMT or ambulance]; R68.0 Hypothermia, not associated with low environmental temperature; T50.991A Poisoning by other drugs, medicaments and biological substances, accidental (unintentional), initial encounter; F17.210 Nicotine dependence, cigarettes, uncomplicated; E83.42 Hypomagnesemia; E87.6 Hypokalemia; F12.90 Cannabis use, unspecified, uncomplicated; Y90.8 Blood alcohol level of 240 mg/100 ml or more; I10 Essential (primary) hypertension; W19.XXXA Unspecified fall, initial encounter; R07.81 Pleurodynia
CPT/HCPCS: 31500; 36600; 43753; 51702; 70450; 71010; 76937; 80048; 80053; 80307; 81001; 82550; 82552; 82805; 83605; 83735; 84100; 84484; 84703; 85025; 85610; 85730; 87641; 93005; 94002; 94003; 94150; 96365; J0330; J1650; J3475; J3480; J7030

== ENCOUNTER 2017-07-01 15:23 | Emergency (ER) | payer OTHER ==
[~2017-07-01] VITALS: Ht 167.6 cm; Wt 70.0 kg
[~2017-07-01 15:23] MED LIST: ACET325T15 PO; BUSP30TA PO; IBUP-232 PO; PRAZ5CAP PO; TRAZ100T10 PO; VENL75TA PO
[2017-07-01 15:28] VITALS: BP 156/81; PULSE 97; RESP 16; TEMP 98.1; O2SAT 98
--- NOTE | 2017-07-01 15:37 | PD ---
HPI Chief Complaint: Suicide Ideation/Attempt Time Seen by Provider: 15:35 Travel History International Travel<30 days: No Contact w/Intl Traveler<30days: No Traveled to known affect area: No History of Present Illness HPI 51-year-old female with history of bipolar disorder and depression with suicidal attempt last January, presents emergency department with worsening depression and suicidal ideation. Patient denies drug use, but does admit to drinking, but states he has not drank that much recently. She does not have a specific plan but notes that she wants to kill herself. That is why she is here today seeking help. She denies any other medical problems acutely at this time. She has no known drug allergies. PFSH Past Medical History Anxiety: Yes Depression: Yes Cancer: No Cardiovascular Problems: Yes Endocrine: No Genitourinary: No Immune Disorder: No Musculoskeletal: Yes (R shoulder hurts) Neurologic: Yes Psychiatric: Yes (PTSD from [facility]) Reproductive: No Respiratory: No Migraines: Yes ?: Not Past Surgical History Hysterectomy: Yes Social History Alcohol Use: Yes ([facility]) Tobacco Use: Yes Substance Use: Yes ([facility]) Allergies-Medications (Allergen,Severity, Reaction): Coded Allergies: No Known Allergies (Unverified , 01/12/17) Reported Meds & Prescriptions Reported Meds & Active Scripts Active Ibuprofen 600 Mg Tab 600 Mg PO Q8HR Eq Acetaminophen (Acetaminophen) 325 Mg Tab 650 Mg PO Q6H PRN Reported Prazosin (Prazosin HCl) 5 Mg Cap 15 Mg PO HS Buspirone (Buspirone HCl) 30 Mg Tab 25 Mg PO BID Trazodone (Trazodone HCl) 100 Mg Tablet 100 Mg PO HS Effexor (Venlafaxine HCl) 75 Mg Tab 150 Mg PO DAILY@2000 Review of Systems Except as stated in HPI: all other systems reviewed are Neg General / Constitutional: No: Fever Eyes: No: Visual changes HENT: No: Headaches Cardiovascular: No: Chest Pain or Discomfort Respiratory: No: Shortness of Breath Gastrointestinal: No: Abdominal Pain Genitourinary: No: Dysuria Musculoskeletal: No: Pain Skin: No Rash Neurologic: No: Weakness Psychiatric: Positive: Depression, Suicidal Ideations, Substance Abuse, No: Anxiety, Homicidal Ideation Endocrine: No: Polydipsia Hematologic/Lymphatic: No: Easy Bruising Physical Exam Narrative GENERAL: Patient appears anxious and sad but otherwise in no acute distress SKIN: Warm and dry. Normal color. Normal turgor. HEAD: Atraumatic. Normocephalic. EYES: Pupils equal and round. No scleral icterus. No injection or drainage. ENT: No nasal bleeding or discharge. Mucous membranes pink and moist. NECK: Trachea midline. Supple and nontender. CARDIOVASCULAR: Regular rate and rhythm. RESPIRATORY: No accessory muscle use. Clear to auscultation. Breath sounds equal bilaterally. GASTROINTESTINAL: Abdomen soft, non-tender, nondistended. Hepatic and splenic margins not palpable. MUSCULOSKELETAL: Extremities without clubbing, cyanosis, or edema. No obvious deformities. NEUROLOGICAL: Awake and alert. No obvious cranial nerve deficits. Motor grossly within normal limits. Five out of 5 muscle strength in the arms and legs. Normal speech. PSYCHIATRIC: Patient admits to suicidal ideation without specific plan. Data Data Last Documented VS Vital Signs Date Time Temp Pulse Resp B/P (MAP) Pulse Ox O2 Delivery O2 Flow Rate FiO2 07/01/17 15:28 98.1 97 16 156/81 (106) 98 Orders Orders Complete Blood Count With Diff (07/01/17 16:49) Comprehensive Metabolic Panel (07/01/17 16:49) Thyroid Stimulating Hormone (07/01/17 16:49) Psych Screen (07/01/17 16:49) Drug Screen, Random Urine (07/01/17 16:49) Alcohol (Ethanol) (07/01/17 16:49) Labs Laboratory Tests Test 07/01/17 16:25 White Blood Count 7.8 TH/MM3 Red Blood Count 3.66 MIL/MM3 Hemoglobin 11.8 GM/DL Hematocrit 34.3 % Mean Corpuscular Volume 93.8 FL Mean Corpuscular Hemoglobin 32.3 PG Mean Corpuscular Hemoglobin Concent 34.4 % Red Cell Distribution Width 14.7 % Platelet Count 455 TH/MM3 Mean Platelet Volume 7.9 FL Neutrophils (%) (Auto) 64.0 % Lymphocytes (%) (Auto) 26.2 % Monocytes (%) (Auto) 6.1 % Eosinophils (%) (Auto) 2.4 % Basophils (%) (Auto) 1.3 % Neutrophils # (Auto) 5.0 TH/MM3 Lymphocytes # (Auto) 2.0 TH/MM3 Monocytes # (Auto) 0.5 TH/MM3 Eosinophils # (Auto) 0.2 TH/MM3 Basophils # (Auto) 0.1 TH/MM3 CBC Comment DIFF FINAL Differential Comment MDM Medical Decision Making Medical Screen Exam Complete: Yes Emergency Medical Condition: Yes Medical Record Reviewed: Yes Differential Diagnosis Depression. Suicidal ideation. EtOH abuse. Narrative Course Patient appears medically stable at time of exam. Psychiatric labs ordered per protocol including serum alcohol level. Psychiatric eval is ordered. Patient is cleared for psychiatric evaluation. Condition: Stable George Levine Jul 01, 2017 15:37
[2017-07-01 17:33] LABS: BASOPHIL # 0.1 TH/MM3 (0-0.2); BASOPHIL % 1.3 % (0.0-2.0); EOSINOPHIL # 0.2 TH/MM3 (0-0.4); EOSINOPHIL % 2.4 % (0.0-4.0); HEMATOCRIT 34.3 % (35.0-46.0); HEMOGLOBIN 11.8 GM/DL (11.6-15.3); LYMPH % 26.2 % (9.0-44.0); MEAN CELL VOLUME 93.8 FL (80.0-100.0); MEAN CORPUSCULAR HEMOGLOBIN 32.3 PG (27.0-34.0); MEAN CORPUSCULAR HGB CONC 34.4 % (32.0-36.0); MEAN PLATELET VOLUME 7.9 FL (7.0-11.0); MONO % 6.1 % (0.0-8.0); MONOCYTE # 0.5 TH/MM3 (0-0.9); PLATELET COUNT 455 TH/MM3 (150-450); RED BLOOD COUNT 3.66 MIL/MM3 (4.00-5.30); RED CELL DISTRIBUTION WIDTH 14.7 % (11.6-17.2); WHITE BLOOD COUNT 7.8 TH/MM3 (4.0-11.0)
[2017-07-01 17:48] LABS: ALBUMIN 3.9 GM/DL (3.4-5.0); AST (GOT) 17 U/L (15-37); BICARBONATE 24.3 MEQ/L (21.0-32.0); BLOOD UREA NITROGEN 10 MG/DL (7-18); CALCIUM 9.2 MG/DL (8.5-10.1); CHLORIDE 103 MEQ/L (98-107); CREATININE 0.87 MG/DL (0.50-1.00); GLOMERULAR FILTRATION RATE 68 ML/MIN (>89); GLUCOSE,RANDOM 89 MG/DL (74-106); SODIUM (NA) 136 MEQ/L (136-145)
[2017-07-01 17:50] LABS: ALT (GPT) 22 U/L (10-53)
[2017-07-01 17:59] LABS: ALKALINE PHOSPHATASE 116 U/L (45-117); TOTAL BILIRUBIN ADULT 0.3 MG/DL (0.2-1.0); TOTAL PROTEIN 8.1 GM/DL (6.4-8.2)
[2017-07-01 18:52] VITALS: BP 135/79; PULSE 81; RESP 16; TEMP 98.7; O2SAT 100
[2017-07-02 02:20] VITALS: BP 125/76; PULSE 75; RESP 18; O2SAT 100
[2017-07-02 06:49] VITALS: BP 117/65; PULSE 74; RESP 17; O2SAT 100
--- NOTE | 2017-07-02 10:50 | PD ---
Physical Exam Date Seen by Provider: Jul 02, 2017 Time Seen by Provider: 10:49 Narrative 51-year-old female previously medically cleared for psychiatric evaluation, has been evaluated by psychiatric staff and deemed psychiatrically stable for discharge at this time. Patient is to follow-up as per psychiatric note. Patient remains medically stable at this time. Data Data Last Documented VS Vital Signs Date Time Temp Pulse Resp B/P (MAP) Pulse Ox O2 Delivery O2 Flow Rate FiO2 07/02/17 06:49 74 17 117/65 (82) 100 Room Air 07/01/17 18:52 98.7 Orders Orders Complete Blood Count With Diff (07/01/17 16:49) Comprehensive Metabolic Panel (07/01/17 16:49) Thyroid Stimulating Hormone (07/01/17 16:49) Psych Screen (07/01/17 16:49) Drug Screen, Random Urine (07/01/17 16:49) Alcohol (Ethanol) (07/01/17 16:49) Diet Regular Basic (07/02/17 Breakfast) Diet Regular Basic (07/02/17 Lunch) Labs Laboratory Tests Test 07/01/17 16:25 White Blood Count 7.8 TH/MM3 Red Blood Count 3.66 MIL/MM3 Hemoglobin 11.8 GM/DL Hematocrit 34.3 % Mean Corpuscular Volume 93.8 FL Mean Corpuscular Hemoglobin 32.3 PG Mean Corpuscular Hemoglobin Concent 34.4 % Red Cell Distribution Width 14.7 % Platelet Count 455 TH/MM3 Mean Platelet Volume 7.9 FL Neutrophils (%) (Auto) 64.0 % Lymphocytes (%) (Auto) 26.2 % Monocytes (%) (Auto) 6.1 % Eosinophils (%) (Auto) 2.4 % Basophils (%) (Auto) 1.3 % Neutrophils # (Auto) 5.0 TH/MM3 Lymphocytes # (Auto) 2.0 TH/MM3 Monocytes # (Auto) 0.5 TH/MM3 Eosinophils # (Auto) 0.2 TH/MM3 Basophils # (Auto) 0.1 TH/MM3 CBC Comment DIFF FINAL Differential Comment Blood Urea Nitrogen 10 MG/DL Creatinine 0.87 MG/DL Random Glucose 89 MG/DL Total Protein 8.1 GM/DL Albumin 3.9 GM/DL Calcium Level 9.2 MG/DL Alkaline Phosphatase 116 U/L Aspartate Amino Transf (AST/SGOT) 17 U/L Alanine Aminotransferase (ALT/SGPT) 22 U/L Total Bilirubin 0.3 MG/DL Sodium Level 136 MEQ/L Potassium Level 4.1 MEQ/L Chloride Level 103 MEQ/L Carbon Dioxide Level 24.3 MEQ/L Anion Gap 9 MEQ/L Estimat Glomerular Filtration Rate 68 ML/MIN Thyroid Stimulating Hormone 3rd Gen 8.060 uIU/ML Ethyl Alcohol Level 99 MG/DL MDM Medical Record Reviewed: Yes Supervised Visit with APARNA: Yes Narrative Course 51-year-old female previously medically cleared for psychiatric evaluation, has been evaluated by psychiatric staff and deemed psychiatrically stable for discharge at this time. Patient is to follow-up as per psychiatric note. Patient remains medically stable at this time. Patient Instructions: General Instructions Disposition: DISCHARGE HOME Condition: Stable George Levine Jul 02, 2017 10:50
--- NOTE | 2017-07-02 10:59 | PD ---
History of Present Illness Chief Complaint: Adjustment disorder with mood disturbance Time Seen by Provider: 10:45 Travel History International Travel<30 Days: No Contact w/Intl Traveler<30days: No Known affected area: No Legal Status Legal Status: Voluntary History of Present Illness: This is a 51-year-old single, female who presents voluntarily to the emergency department for thoughts of suicide. Patient is unknown to this facility for mental health however, has been here for medical previously. Reviewed electronic medical record, labs, and discuss case with staff. Of note , patient's TSH level 8.060 at this visit. Blood alcohol level 0.99. Patient was evaluated in her room in J pod. She is awake, alert, and oriented 4. Her speech is clear, logical, and organized. She does not appear to be internally stimulated. Her mood is good and her affect is euthymic, she does become sad when discussing the recent refusal by Social Security for disability. Patient states that [facility] told [facility] that she was having thoughts of harming himself she was advised to come to our facility. She reports a diagnosis of PTSD, anxiety, and depression. She states that she [facility] with a counselor. When asked if something had happened to trigger her recent feelings patient advises "a lot of things". She reports that she was recently "denied Social Security disability and I have no money everything is going downhill". When asked about previous suicide attempts patient states that she had one in January. When asked what method she use at that time patient reports "I drink for 3 days". She lives with her boyfriend and reports that they have a "good" relationship. While she does state that she feels like harming herself, she has no plan, and has had no real previous attempts. She denies homicidal ideation. She reports that she occasionally hears voices and states that they "laugh" at her. She denies having visual hallucinations. I can elicit no delusional material at this time. PFSH Past Medical History Narrative Medical TSH 8.060 Anxiety: Yes Depression: Yes Cancer: No Cardiovascular Problems: Yes (childhood heart murmur) Endocrine: No Genitourinary: No Immune Disorder: No Musculoskeletal: Yes (R shoulder hurts) Neurologic: Yes Psychiatric: Yes (PTSD from [facility]) Reproductive: No Respiratory: No Migraines: Yes ?: Not Past Surgical History Hysterectomy: Yes Neurologic Surgery: Yes (L hand - Carpal Robin) Other Surgery: Yes Psychiatric History Psychiatric History Self-reported history of PTSD, anxiety, and depression. States that she is treated through the [facility]. Denies any inpatient admissions for mental health. Hx Psychiatric Treatment: HX: DEPRESSION, BIPOLAR DISORDER History of Inpatient Treatment: No Guns or firearms in home: No Social History Patient reports that she smokes half a pack of cigarettes a day. Drinks alcohol socially. Smokes marijuana. Hx Alcohol Use: Yes (uto) Hx Tobacco Use: Yes Hx Substance Use: Yes Substance Use Type: Alcohol Hx of Substance Use Treatment: Yes Family Psychiatric History Patient states that her brother diagnosed paranoid schizophrenic and her sister has a diagnosis of bipolar. Denies any familial suicide attempts. Allergies-Medications (Allergen,Severity, Reaction): Coded Allergies: No Known Allergies (Unverified , 01/12/17) Reported Meds & Prescriptions Reported Meds & Active Scripts Active Ibuprofen 600 Mg Tab 600 Mg PO Q8HR Eq Acetaminophen (Acetaminophen) 325 Mg Tab 650 Mg PO Q6H PRN Reported Prazosin (Prazosin HCl) 5 Mg Cap 15 Mg PO HS Buspirone (Buspirone HCl) 30 Mg Tab 25 Mg PO BID Trazodone (Trazodone HCl) 100 Mg Tablet 100 Mg PO HS Effexor (Venlafaxine HCl) 75 Mg Tab 150 Mg PO DAILY@2000 Mental Status Examination Appearance: Appropriate, Well dressed/well groomed Consciousness: Alert Orientation: x4 Motor Activity: Normal gait Speech: Unremarkable Language: Adequate Fund of Knowledge: Adequate Attention and Concentration: Adequate Memory: Unremarkable Mood: Appropriate, Good, Other (The patient's mood was good for majority of her evaluation however, she did become sad when discussing the rejection by Social Security for disability) Affect: Sad, Other (Same as mood statement) Thought Process & Associations: Intact Thought Content: Appropriate Hallucination Type: None Delusion Type: None Suicidal Ideation: Yes Suicidal Plan: No Suicidal Intention: No Homicidal Ideation: No Homicidal Plan: No Homicidal Intention: No Insight: Fair Judgment: Adequate MDM Medical Decision Making Medical Record Reviewed: Yes Assessment/Plan This is a 51-year-old single, female who lives with her boyfriend and presents voluntarily to the emergency department for thoughts of self-harm. [facility] She self reports a history of PTSD, anxiety, and depression. Her mood is good although she becomes sad when discussing her inability to obtain Social Security disability. Her affect is euthymic to most of the evaluation but again she becomes sad when discussing her recent rejection for disability. She is alert and oriented 4. Her speech is clear, organized, and logical. Advised patient that her recent TSH test showed a level of 8.060. When asked if anything had triggered this patient immediately brought up the denial of Social Security disability and stated "I have no money everything is going downhill". While patient endorses that she wants to hurt herself and she has no plan. She reports that her only previous "suicidal attempt" was in January and her method was " drinking alcohol for 3 days". At this time, I believe patient secondary gain is bolstering her case for SSI. I do not believe she would benefit from inpatient admission at this time and she does not meet criteria for a Velásquez act. Patient is future oriented, advises that she is waiting to hear [facility] on whether she will get a service-connected disability through them. She also reports that she plans on filing an appeal for SSI. Patient states that she will follow up with the [facility] for her possible hypothyroidism. She is compliant with meds and states that she intends to remain compliant. Patient contracts for safety. Advised patient she can return to this facility if her condition worsened. Orders Orders Complete Blood Count With Diff (07/01/17 16:49) Comprehensive Metabolic Panel (07/01/17 16:49) Thyroid Stimulating Hormone (07/01/17 16:49) Psych Screen (07/01/17 16:49) Drug Screen, Random Urine (07/01/17 16:49) Alcohol (Ethanol) (07/01/17 16:49) Diet Regular Basic (07/02/17 Breakfast) Diet Regular Basic (07/02/17 Lunch) Results Vital Signs Date Time Temp Pulse Resp B/P (MAP) Pulse Ox O2 Delivery O2 Flow Rate FiO2 07/02/17 06:49 74 17 117/65 (82) 100 Room Air 07/02/17 02:20 75 18 125/76 (92) 100 07/01/17 18:52 98.7 81 16 135/79 (97) 100 Room Air 07/01/17 15:28 98.1 97 16 156/81 (106) 98 Laboratory Tests Test 07/01/17 16:25 White Blood Count 7.8 Red Blood Count 3.66 Hemoglobin 11.8 Hematocrit 34.3 Mean Corpuscular Volume 93.8 Mean Corpuscular Hemoglobin 32.3 Mean Corpuscular Hemoglobin Concent 34.4 Red Cell Distribution Width 14.7 Platelet Count 455 Mean Platelet Volume 7.9 Neutrophils (%) (Auto) 64.0 Lymphocytes (%) (Auto) 26.2 Monocytes (%) (Auto) 6.1 Eosinophils (%) (Auto) 2.4 Basophils (%) (Auto) 1.3 Neutrophils # (Auto) 5.0 Lymphocytes # (Auto) 2.0 Monocytes # (Auto) 0.5 Eosinophils # (Auto) 0.2 Basophils # (Auto) 0.1 CBC Comment DIFF FINAL Differential Comment Blood Urea Nitrogen 10 Creatinine 0.87 Random Glucose 89 Total Protein 8.1 Albumin 3.9 Calcium Level 9.2 Alkaline Phosphatase 116 Aspartate Amino Transf (AST/SGOT) 17 Alanine Aminotransferase (ALT/SGPT) 22 Total Bilirubin 0.3 Sodium Level 136 Potassium Level 4.1 Chloride Level 103 Carbon Dioxide Level 24.3 Anion Gap 9 Estimat Glomerular Filtration Rate 68 Thyroid Stimulating Hormone 3rd Gen 8.060 Ethyl Alcohol Level 99 Diagnosis Primary Impression: Adjustment disorder with depressed mood Psychiatrically Cleared: Yes Condition: Stable Aylin Kulkarni Jul 02, 2017 10:59
== END 2017-07-02 11:21 | disposition home or self-care (01) ==
LOC: NEPD 15:23 → NEPJ 07-02 11:21
DX: F43.21 Adjustment disorder with depressed mood (principal); F31.9 Bipolar disorder, unspecified; R45.851 Suicidal ideations; F12.90 Cannabis use, unspecified, uncomplicated; Z72.0 Tobacco use
CPT/HCPCS: 80053; 80307; 84443; 85025; 99283